=== PATIENT | female | born 1950 | race Two or more races ===

== ENCOUNTER 2018-04-20 06:05 | Day surgery (SDC) | payer MEDICARE ==
--- NOTE | 2018-04-19 09:52 | Pre-Procedure Note/Attestation ---
Pre-Procedure Note/Attestation Complete Prior to Procedure Planned Procedure: left Procedure Narrative: phaco with IOL Indications for Procedure Pre-Operative Diagnosis: cataract Attestation I attest that I discussed the nature of the procedure; its benefits; risks and complications; and alternatives (and the risks and benefits of such alternatives ), prior to the procedure, with the patient (or the patient's legal containers sales representative). I attest that, if there was a reasonable possibility of needing a blood transfusion, the patient (or the patient's legal containers sales representative) was given the [facility] standardized written summary, pursuant to the [place] Blood Safety Act ([place] Health and Safety Code # 1645, as amended). I attest that I re-evaluated the patient just prior to the surgery and that there has been no change in the patient's H&P, except as documented below: Viral Le MD Apr 19, 2018 09:52
--- NOTE | 2018-04-19 09:54 | Opthalmology H&P ---
Ophthalmology H&P H&P Chief Complaint: decreased vision in left eye HPI Vision Affects Ability to: read, focus/use eyes together HPI Narrative blurry vision Exam Visual Acuity: OD 20/60 OS CF Tension: OD 15 OS 14 Eye Exam: normal OU: external exam, palpebral fissure-width, marginal reflex distance, levator function, corneas, anterior chambers; findings: lens - OD NS OS PSC, fundus exam - POOR VIEW OS Assessment/Plan Diagnosis: (1) Capsular cataract of left eye Treatment Plan: cataract extraction w/ lens implant Goals of Treatment: improvement of vision, enhance quality of life Attestation Attestation The risks and benefits of the surgery as well as alternative procedures were explained to the patient in detail. Viral Le MD Apr 19, 2018 09:54
[2018-04-20] VITALS (8 sets, daily range): BP systolic 104–124; BP diastolic 63–74
[~2018-04-20] VITALS: Ht 165.1 cm; Wt 104.3 kg
[2018-04-20] MEDS ORDERED: Akten 3.5% 1ml Btl LEFT EYE ONE (07:00)
[2018-04-20] MEDS ORDERED: Proparacaine 0.5% Opth Soln 15ml LEFT EYE ONE (07:00)
[2018-04-20] MEDS ORDERED: Tetracaine 0.5% Opth 4ml Soln LEFT EYE ONE (07:00)
[2018-04-20] MEDS: Cyclopentolate 1% Opth Sol 2ml LEFT EYE SCH ×3 (07:53→08:09)
[2018-04-20] MEDS: Phenylephrine 10% Opth Soln 5ml LEFT EYE SCH ×3 (07:53→08:08)
[2018-04-20] MEDS: Tropicamide 1% Opth 15ml Soln LEFT EYE SCH ×3 (07:53→08:08)
[2018-04-20] MEDS: Diclofenac Sod 0.1% Op Soln LEFT EYE SCH ×3 (07:54→08:10)
[2018-04-20] MEDS: Tobramycin Op Soln 0.3% 5ml LEFT EYE SCH ×3 (07:55→08:10)
[2018-04-20] MEDS ORDERED: HYDROCHLOROTH12.5 MG ORAL (08:12)
[2018-04-20] MEDS ORDERED: DILTIAZEM 24HR300 M1 PO (08:13)
[2018-04-20] MEDS ORDERED: ELIQUIS5 MG PO (08:15)
[2018-04-20] MEDS ORDERED: HYDREA500 MG PO (08:16)
[2018-04-20] MEDS ORDERED: Sodium Hyaluronate 14 mg/ml 0.85ml ONE (08:34)
[2018-04-20] MEDS ORDERED: BSS 500ml btl ONE (08:34)
[2018-04-20] MEDS ORDERED: Povidone-Iodine 5% opth solution ONE (08:34)
[2018-04-20] MEDS ORDERED: BSS 15ml BTL ONE (08:34)
[2018-04-20] MEDS ORDERED: EPINEPHrine 1mg/1ml Amp ONE (08:34)
[2018-04-20] MEDS ORDERED: LR 1000ml 1,000 ML IVLG SCH (08:44)
--- NOTE | 2018-04-20 08:44 | Anethesia Preoperative Eval ---
Anesthesia Pre-op PMH/ROS General Date of Evaluation: Apr 20, 2018 Anesthesiologist: Raj ASA Score: ASA 3 Mallampati Score Class I : Soft palate, uvula, fauces, pillars visible Class II: Soft palate, uvula, fauces visible Class III: Soft palate, base of uvula visible Class IV: Only hard plate visible Mallampati Classification: Class III Surgeon: Easton Diagnosis: Left cataract Surgical Procedure: LEft cataract extraction with IOL Anesthesia History: none Family History: no anesthesia problems Allergies: Coded Allergies: POLLEN EXTRACTS (Verified Allergy, Intermediate, watery eyes; sneezing, ) CODEINE (Unverified Adverse Reaction, Unknown, 04/20/18) Uncoded Allergies: codein (Adverse Reaction, Intermediate, vomiting, 04/20/18) Medications: see eMAR Patient NPO?: Yes NPO Date: Apr 20, 2018 NPO Time: 22:00 Past Medical History Cardiovascular: Reports: HTN; Denies: CAD, [place], valve dz, arrhythmia, other Pulmonary: Denies: asthma, COPD, DEVIN, other Gastrointestinal/Genitourinary: Reports: GERD; Denies: CRI, ESRD, other Neurologic/Psychiatric: Denies: dementia, CVA, depression/anxiety, TIA, other Endocrine: Denies: DM, hypothyroidism, steroids, other HEENT: Denies: cataract (L), cataract (R), glaucoma, [place] (L), [place] (R), other Hematology/Immune: Reports: anemia; Denies: DVT, bleeding disorder, other Musculoskeletal/Integumentary: Reports: OA; Denies: RA, DJD, DDD, edema, other Other: obesity PSxH Narrative: C/s, ex-lap Anesthesia Pre-op Phys. Exam Physician Exam Last Vital Signs Date Time Temp Pulse Resp B/P (MAP) Pulse Ox O2 Delivery O2 Flow Rate FiO2 04/20/18 08:06 97.7 77 18 124/72 98 Room Air Constitutional: NAD Cardiovascular: RRR Respiratory: CTA Airway Exam Mallampati Score: Class III MO: limited ROM: limited Teeth: missing Dentures: upper, lower Anesthesia Pre-op A/P Labs see chart Studies Pre-op Studies: EKG - sr Risk Assessment & Plan Assessment: ASA III Plan: MAC Status Change Before Surgery: No Pre-Antibiotics Drug: N/A Dawkins-Felipeana,Danuta MD Apr 20, 2018 08:43
[2018-04-20] MEDS ORDERED: DiphenhydrAMINE 50mg/ml Inj IVP PRN (08:45)
[2018-04-20] MEDS ORDERED: Sterile Water Irrig 1000ml IRRIG ONE (09:00)
[2018-04-20] MEDS ORDERED: Tetracaine 0.5% Opth 4ml Soln ONE (09:00)
[2018-04-20] MEDS ORDERED: Metoclopramide 10mg/2ml Inj ONE (09:00)
[2018-04-20] MEDS ORDERED: Maxitrol Opth Oint 3.5gm ONE (09:00)
[2018-04-20] MEDS ORDERED: Pred Forte 1% Opth Susp 1ml ONE (09:00)
[2018-04-20] MEDS ORDERED: Lidocaine 1% MPF 10mg/ml 5ml ONE (09:00)
[2018-04-20] MEDS ORDERED: fentaNYL 100 mcg/2 mL IV ONE (09:00)
[2018-04-20] MEDS ORDERED: LR 1000ml ONE (09:00)
[2018-04-20] MEDS ORDERED: Dexamethasone 4mg/ml vial ONE (09:00)
[2018-04-20] MEDS ORDERED: NS Irrig 1000ml ONE (09:00)
[2018-04-20] MEDS ORDERED: acetaZOLAMIDE 500mg Inj ONE (09:29)
--- NOTE | 2018-04-20 09:29 | Immediate Post-Op Evaluation ---
Immediate Post-Op Evalulation Immediate Post-Op Evalulation Procedure: Left cataract extraction with IOL Date of Evaluation: Apr 20, 2018 Time of Evaluation: 09:30 IV Fluids: 500 Blood Products: 0 Estimated Blood Loss: 0 Urinary Output: 0 Blood Pressure Systolic: 120 Blood Pressure Diastolic: 73 Pulse Rate: 85 Respiratory Rate: 17 O2 Sat by Pulse Oximetry: 96 Temperature (Fahrenheit): 98.2 Pain Score (1-10): 0 Nausea: No Vomiting: No Complications 0 Patient Status: awake, reacts, patent, none Hydration Status: adequate Drug: N/A Danuta Blanc MD Apr 20, 2018 09:29
--- NOTE | 2018-04-20 09:29 | 48 Hour Post Anesthesia Eval ---
Post Anesthesia Evaluation Procedure: Left cataract extraction with IOL Date of Evaluation: Apr 20, 2018 Airway: patent Nausea: No Vomiting: No Pain Intensity: 0 Hydration Status: adequate Cardiopulmonary Status: at baseline Mental Status/LOC: patient returned to baseline Post-Anesthesia Complications: 0 Follow-up care needed: ready to discharge Danuta Blanc MD Apr 20, 2018 09:29
[2018-04-20] MEDS ORDERED: OMEPRAZOLE20 M2 ORAL (15:03)
[2018-04-20] MEDS ORDERED: vit D PO (15:04)
--- NOTE | 2018-04-21 20:15 | Brief Operative Note ---
Immediate Post Operative Note Operative Note Chief Complaint: blurry vision Pre-op Diagnosis: cataract, OS Procedure: phaco with IOL Post-op Diagnosis: pseudophakia Post-op Diagnosis: same as pre-op Findings: consistent w/pre-op dx studies Surgeon: Mimi Anesthesiologist: Mariza Anesthesia: MAC Specimen: none Complications: none Condition: stable Fluids: LR Estimated Blood Loss: none Drains: none Implant(s) used?: Yes Viral Le MD Apr 21, 2018 20:15
--- NOTE | 2018-04-21 20:16 | Operative Note - PDOC ---
Operative Note Operative Note Date of Operation/Procedure: Apr 20, 2018 Chief Complaint: blurry vision Pre-op Diagnosis: cataract, OS Procedure: phaco with IOL Post-op Diagnosis: pseudophakia Post-op Diagnosis: same as pre-op Operative Findings: consistent w/pre-op dx studies Surgeon: Mimi Anesthesiologist: Mariza Anesthesia: MAC Specimen: none Complications: none Condition: stable Fluids: LR Estimated Blood Loss: none Drains: none Implant(s) used?: Yes Indications for Procedure cataract Description of Procedure This patient has been complaining visually significant cataract in the left eye with the best corrected visual acuity under moderate glare conditions worse. The patient complains of difficulties with glare in performing activities of daily living and wants to manage personal affairs with comfort and accuracy and see well enough to move with safety at home and outdoors. ~~~ The risks, benefits and alternatives of the procedure were discussed with the patient in the office prior to scheduling surgery. All questions from the patient were answered after the surgical procedure was explained in detail. The risks of the procedure as explained to the patient include, but are not limited to, pain, infection, bleeding, loss of vision, retinal detachment, need for further surgery, loss of lens nucleus, double vision, etc. Alternative procedures were discussed which include, to do nothing or seek a second opinion. Informed consent for this procedure was obtained from the patient. The patient was referred to a primary care physician for a cardiopulmonary clearance prior to surgery, after proper evaluation was done patient was properly scheduled for outpatient surgery. The patient was brought to the operating room where the anesthesiologist established I.V. lines and cardiac monitoring leads. Mild intravenous sedation was administered. Using a solution containing 0.75% Marcaine and 2% lidocaine with Wydase, a peribulbar block was administered to the eye. ~The patient was then prepared with a 5% solution of povidone-iodine to the conjunctival fornix and lashes, and a 10% solution of povidone-iodine to the lids and periorbital skin. The patient was then draped in the usual sterile fashion. A lid speculum was then placed in the operative eye. A keratome blade was then used to create a biplanar incision into the anterior chamber. Viscoelastics was then instilled into the anterior chamber. A curvilinear capsulorrhexis was then fashioned with an utrata forceps. BSS and a G-27 cannula were then used to hydrodissect and hydro delineate the lens. Paracentesis incision was made at 3 o'clock with sharp blade. The phacoemulsification unit, after being properly adjusted ~and tested, was then used to emulsify the nucleus followed by the residual cortical material being aspirated with the irrigation and aspiration unit. Healon was then instilled into the anterior chamber. The corneal wound was then enlarged to the size of the optic with the jhonny keratome blade. The intraocular lens was then inspected for right ~power and size and thought to be satisfactory. Then the lens was gently placed in the capsular bag. Positioning within the capsular bag was confirmed by direct visualization. Optic centration was accomplished with a Sinskey hook. Viscoelastics ~was removed from the anterior chamber using the irrigation and aspiration unit. The corneal wound was then tested for leaks and none were found. The lid speculum were then removed. Sponge and needle counts were correct. An eye patch and shield were placed over the operative eye. The patient was taken to the recovery room in stable condition. There were no complications. The patient tolerated the procedure well. The patient was then transferred to the ambulatory surgery unit in stable and satisfactory condition , was given detailed written instructions and asked to follow up ~in the office the next day. Viral Le MD Apr 21, 2018 20:16
== END 2018-04-20 10:50 | disposition home or self-care (01) ==
LOC: SUR 06:05
DX: H25.032 Anterior subcapsular polar age-related cataract, left eye (principal); Z88.6 Allergy status to analgesic agent; Z88.2 Allergy status to sulfonamides; I10 Essential (primary) hypertension; K21.9 Gastro-esophageal reflux disease without esophagitis; M19.90 Unspecified osteoarthritis, unspecified site
CPT/HCPCS: 66984; J0171; J1100; J1120; J2405; J2765; J3010; J3370; V2632; 94003; 94150